=== PATIENT | female | born 1970 | race African-American/Black ===

== ENCOUNTER 2018-03-14 14:28 | Outpatient (CLI) | payer OTHER | END 2018-03-14 14:29 | disposition home or self-care (01) | LOC: CTENTCT 14:28 | PROVIDERS: ATTEND Specialist | DX: J01.81 Other acute recurrent sinusitis (principal) | CPT/HCPCS: 70486 ==

== ENCOUNTER 2018-08-14 09:34 | Day surgery (SDC) | payer BC ==
[2018-08-13 15:44] VITALS: BMI 29.0
[2018-08-14] MEDS ORDERED: Midazolam HCl 2 mg/2 ml Vial ONE ×2 (10:14→10:57)
[2018-08-14] MEDS ORDERED: Oxymetazoline HCl 0.05% ( 15 ML ) ONE ×2 (10:14→10:58)
[2018-08-14] MEDS ORDERED: Fentanyl 100 MCG/2 ML VIAL ONE ×2 (10:57→12:10)
[2018-08-14] MEDS ORDERED: Lidocaine 1% w/Epinephrine 1:100K 20 ML VIAL ONE (10:58)
[2018-08-14] MEDS ORDERED: Hydrocodone-Acetamin 15 ML UDCUP ONE (14:16)
[2018-08-14] MEDS ORDERED: Glycopyrrolate 0.2 MG/ML 5 ML SYRINGE ONE (15:14)
[2018-08-14] MEDS ORDERED: PROPOFOL 200 MG/20 ML VIAL ONE (15:14)
[2018-08-14] MEDS ORDERED: Dexamethasone 20 MG/5 ML VIAL ONE (15:14)
[2018-08-14] MEDS ORDERED: Rocuronium Bromide 10 MG/ML (10ML VIAL) ONE (15:14)
[2018-08-14] MEDS ORDERED: Lidocaine 1% PF 5 ML VIAL ONE (15:14)
[2018-08-14] MEDS ORDERED: Ondansetron PF 4 MG/2 ML Vial ONE (15:14)
--- NOTE | 2018-08-15 10:10 | OP ---
DATE OF PROCEDURE: 08/14/2018 PREOPERATIVE DIAGNOSES: 1. Chronic rhinosinusitis. 2. Right middle turbinate colin bullosa. 3. Bilateral inferior turbinate hypertrophy. 4. Nasal obstruction. POSTOPERATIVE DIAGNOSES: 1. Chronic rhinosinusitis. 2. Right middle turbinate colin bullosa. 3. Bilateral inferior turbinate hypertrophy. 4. Nasal obstruction. PROCEDURES PERFORMED: 1. Bilateral endoscopic sinus surgery total ethmoidectomies. 2. Bilateral endoscopic sinus surgery maxillary antrostomies. 3. Bilateral endoscopic sinus surgery frontal sinusotomies. 4. Bilateral inferior turbinate submucosal resection. ESTIMATED BLOOD LOSS: 20 mL. COMPLICATIONS: None. ANESTHESIA: GETA. DESCRIPTION OF PROCEDURE: The patient was taken to the operating room and placed supine on the table. General endotracheal anesthesia was obtained by the anesthesia staff. Tube was secured in the left lower lip. Following this, the patient was placed in a beach chair position and prepped and draped for standard nasal procedure. Following this, the 0-degree endoscope was advanced to the nasal cavity. 1% lidocaine with 1:100,000 epinephrine was injected into the inferior turbinates, middle turbinates, and lateral nasal wall bilaterally. Following this, the right middle turbinate was identified and was vertically incised using a sickle knife. The lateral portion of the right middle turbinate colin bullosa was then removed using the straight Blakesley forceps. Following this, the uncinate process was identified bilaterally and was anteriorly fractured using a ball-ended probe. Following this, the uncinate process was removed using the 0-degree microdebrider and upbiting Blakesley forceps bilaterally. Following this, the natural maxillary sinus ostia was identified and was gently widened using the curved microdebrider and straight Blakesley forceps bilaterally. Following this, ethmoidal bulla was identified and was punctured on its medial and inferior aspect with the 0-degree microdebrider. Following this, ethmoidal bulla was removed using the microdebrider and the up-biting Blakesley forceps. Following this, the grand lamella was identified and was punctured into the posterior ethmoidal cells using the 0-degree microdebrider. Working from posterior to anterior, the ethmoidal cells were opened bilaterally using the straight microdebrider and curved Blakesley forceps. Following this, a 45-degree endoscope along with the curved microdebrider blade were used to further open the frontal recess cells exposing the frontal sinus ostia bilaterally. Following this, the frontal sinus ostia was widened using the curved microdebrider bilaterally. Following this, the inferior turbinates were punctured on the anterior and inferior aspect using submucosal microdebrider and submucosal resection was performed of the anterior and inferior portions of the inferior turbinates bilaterally. The patient tolerated the procedure well. Job ID: [id number]
== END 2018-08-14 15:20 | disposition home or self-care (01) ==
LOC: SDC 09:34
PROVIDERS: ATTEND Otolaryngology Plastic Surgery within the Head & Neck
PROC: 09TV8ZZ Resection of Left Ethmoid Sinus, Via Natural or Artificial Opening Endoscopic (ICD-10-PCS; principal; 2018-08-14)
PROC: 09BL8ZZ Excision of Nasal Turbinate, Via Natural or Artificial Opening Endoscopic (ICD-10-PCS; principal; 2018-08-14)
PROC: 099Q8ZZ Drainage of Right Maxillary Sinus, Via Natural or Artificial Opening Endoscopic (ICD-10-PCS; principal; 2018-08-14)
PROC: 09QS8ZZ Repair Right Frontal Sinus, Via Natural or Artificial Opening Endoscopic (ICD-10-PCS; principal; 2018-08-14)
PROC: 09TU8ZZ Resection of Right Ethmoid Sinus, Via Natural or Artificial Opening Endoscopic (ICD-10-PCS; principal; 2018-08-14)
PROC: 09TL0ZZ Resection of Nasal Turbinate, Open Approach (ICD-10-PCS; principal; 2018-08-14)
PROC: 099R8ZZ Drainage of Left Maxillary Sinus, Via Natural or Artificial Opening Endoscopic (ICD-10-PCS; principal; 2018-08-14)
PROC: 09QT8ZZ Repair Left Frontal Sinus, Via Natural or Artificial Opening Endoscopic (ICD-10-PCS; principal; 2018-08-14)
DX: J32.4 Chronic pansinusitis (principal); J34.3 Hypertrophy of nasal turbinates; J34.89 Other specified disorders of nose and nasal sinuses; Z91.012 Allergy to eggs; Z91.011 Allergy to milk products; Z79.818 Long term (current) use of other agents affecting estrogen receptors and estrogen levels; Z79.899 Other long term (current) drug therapy
CPT/HCPCS: 85014; J0131; J1100; J2001; J2250; J2405; J2704; J3010

== ENCOUNTER 2018-12-16 10:07 | Outpatient (CLI) | payer BC ==
--- NOTE | 2018-12-16 10:25 | ULT ---
US Spleen STANDARD: 12/16/2018 12:00 AM CLINICAL HISTORY: Essential thrombocythemia. STUDY: Limited left upper quadrant ultrasound of abdomen. COMPARISON: None. FINDINGS: Spleen: Size: 9.2 cm Masses: None No other left upper quadrant abnormality is seen. IMPRESSION: Unremarkable exam.
== END 2018-12-16 10:08 | disposition home or self-care (01) ==
LOC: BICULT 10:07
PROVIDERS: ATTEND Internal Medicine Medical Oncology
DX: D47.3 Essential (hemorrhagic) thrombocythemia (principal); R16.1 Splenomegaly, not elsewhere classified
CPT/HCPCS: 76705

== ENCOUNTER 2020-03-04 14:44 | Outpatient (CLI) | payer BC ==
--- NOTE | 2020-03-04 15:28 | CT ---
CT Brain WO Con: 03/04/2020 12:00 AM CLINICAL HISTORY: History of headache. IMAGING TECHNIQUE: Multiple CT images were obtained of the brain without IV contrast. COMPARISON: None. FINDINGS: BRAIN: Evidence of acute infarct: None. Evidence of chronic ischemic change:None. Evidence of intracranial hemorrhage: None. Evidence of midline shift: Third ventricle and septum pellucidum are midline. Ventricles: Normal. No hydrocephalus. SKULL: Intact. VISUALIZED PARANASAL SINUSES: Clear. MASTOID AIR CELLS: Clear. EXTRACRANIAL SOFT TISSUES: Normal. IMPRESSION: No acute intracranial abnormality.
== END 2020-03-04 14:45 | disposition home or self-care (01) ==
LOC: BICCT 14:44
PROVIDERS: ATTEND Nurse Practitioner Family
DX: R51 Headache (principal)
CPT/HCPCS: 70450

== ENCOUNTER 2025-04-08 15:42 | Outpatient (CLI) | payer BC | END 2025-04-08 15:43 | disposition home or self-care (01) | LOC: BICRAD 15:42 | PROVIDERS: ATTEND Family Medicine | DX: M79.602 Pain in left arm (principal); M25.512 Pain in left shoulder; M47.812 Spondylosis without myelopathy or radiculopathy, cervical region | CPT/HCPCS: 72040 ==

== ENCOUNTER 2025-04-24 14:36 | Outpatient (CLI) | payer BC | END 2025-04-24 14:37 | disposition home or self-care (01) | LOC: BICMRI 14:36 | PROVIDERS: ATTEND Family Medicine | DX: M50.10 Cervical disc disorder with radiculopathy, unspecified cervical region (principal); M48.02 Spinal stenosis, cervical region | CPT/HCPCS: 72141 ==